=== PATIENT | male | born 2000 ===

== ENCOUNTER 2025-04-03 18:03 | Emergency (ER) | payer BC ==
[2025-04-03 19:17] LABS: APPEARANCE,URINE CLEAR (Clear); GLUCOSE,URINE NEGATIVE (Negative); OCCULT BLOOD,URINE NEGATIVE (Negative)
[2025-04-03] MEDS: cefTRIAXone 500 MG, Lidocaine 1% 1 ML IM SCH (21:47)
== END 2025-04-03 21:54 | disposition home or self-care (01) ==
LOC: JD.ED 18:03
DX: N45.2 Orchitis (principal); Z79.899 Other long term (current) drug therapy
CPT/HCPCS: 76870; 81003; 93975; 96372; 99284; A9270; J0696; J2003; 99283